=== PATIENT | female | born 1975 | race Caucasian/White ===

== ENCOUNTER 2019-09-04 20:42 | Inpatient (IN) | payer SELFPAY ==
[2019-09-04] MEDS ORDERED: ZOLPIDEM 5 MG TAB PO PRN (21:17)
[2019-09-04] MEDS ORDERED: ACETAMINOPHEN 325 MG TAB PO PRN (21:17)
[2019-09-04 22:24] LABS: Hematocrit 34.2 % (30.3-42.9); Hemoglobin 11.6 gm/dl (10.1-14.3); Mean Corpuscular HGB Conc 34 % (30-34); Mean Corpuscular Volume 84 fl (79-97); Platelet Count 263 K/mm3 (140-440); Red Blood Count 4.05 M/mm3 (3.65-5.03); Red Cell Distribution Width 17.3 % (13.2-15.2)
[2019-09-04] MEDS ORDERED: miSOPROStol 200 MCG TAB VG SCH (23:00)
[2019-09-04 23:56] VITALS: BP 118/58
[2019-09-05] MEDS ORDERED: OXYTOCIN 20 UNIT/1000ML DRIP 20,000 MILLIUNITS/1,000 ML BAG IV ONE (05:54)
[2019-09-05] MEDS ORDERED: SODIUM CHLORIDE 0.9% 1000 ML 0 ML ONE (08:44)
--- NOTE | 2019-09-05 11:09 | Ultrasound Report ---
Pelvic ultrasound. 09/05/2019. HISTORY: . Possible loss. FINDINGS: Imaging was performed transabdominally. The uterus measures 15.7 x 8 x 8.4 cm. Endometrial stripe measures 1.6 cm and is mildly heterogeneous. There is no significant increased vascularity or localized soft tissue lesion. The ovaries were not visualized. IMPRESSION: Thickened heterogeneous endometrial stripe. No increased blood flow or discrete soft tiss ue lesion which is highly suggestive of retained products. Signer Name: Kulwant Mederos MD Signed: 09/05/2019 11:05 AM Workstation Name: [id number]
--- NOTE | 2019-09-05 11:45 | History and Physical Report ---
History of Present Illness Date of examination: 09/05/19 ( I saw pt around 1015) Date of admission: 09/04/19 20:42 History of present illness: Patient is a 44-year-old G5 P 3013 at 16.2 weeks is status post delivery of a intrauterine demise early this morning around 6 to 6:30 in the morning. Per report from the nursing staff from overnight the fetus and placenta did deliver intact. I was then contacted around 845 after patient in the 8:00 hour passed some additional clotting tissue. After that though her bleeding was reported to be minimal. Upon my interview with the patient and her bleeding was still minimal. Her cramping was improved. The ultrasound ordered for potential retained products of conception was being done when I was in the room on 10:15. Per the termite technician, there was no evidence of any significant products of conception that was retained. Patient was brought in yesterday evening after it was noted in the office that there was no heart tones. Cytotec was then given to induce labor. Patient is currently stable in no physical complaints. Of note patient has had a demise around 16 weeks in the past. Past History Past Medical History: other (depression) Past Surgical History: no surgical history - Obstetrical History Expected Date of Delivery: 02/18/20 Actual Gestation: 16 Week(s) 2 Day(s) : 5 Para: 3 Hx # Term Pregnancies: 3 Spontaneous Abortions: 2 (16 weeks IUFD for both) Number of Living Children: 3 Medications and Allergies Allergies Allergy/AdvReac Type Severity Reaction Status Date / Time No Known Allergies Allergy Verified 04/02/16 21:28 Home Medications Medication Instructions Recorded Confirmed Last Taken Type Ibuprofen [Motrin 800 MG tab] 800 mg PO Q8HR PRN #30 tablet 09/05/19 Unknown Rx Active Meds: Active Medications Acetaminophen (Tylenol) 650 mg PO Q6H PRN PRN Reason: Pain MILD(1-3)/Fever >100.5/HANKINS Misoprostol (Cytotec) 200 mcg VG Q6H GLADIS Last Admin: 09/04/19 23:03 Dose: 200 mcg Documented by: Zolpidem Tartrate (Ambien) 5 mg PO QHS PRN PRN Reason: Sleep Review of Systems All systems: negative (except HPI) - Vital Signs Vital signs: Vital Signs Pulse BP 71 132/60 09/04/19 22:25 09/04/19 22:25 Temp Pulse Resp BP Pulse Ox 98.6 F 79 118/58 09/04/19 22:26 09/04/19 23:55 09/04/19 23:55 - Physical Exam Abdomen: Positive: normal appearance, soft. Negative: tenderness Genitourinary (Female): Positive: normal external genitalia Vulva: both: normal Vagina: Positive: normal moisture (cervix < 1 cm dilated, no significant blood in vagina, no protruding tissue or clots palpable. Uterus palpated firm on bimanual exam) Results Result Diagrams: 09/04/19 22:05 Abnormal lab results 09/04/19 Range/Units 22:05 RDW 17.3 H (13.2-15.2) % All other labs normal. Assessment and Plan - Patient Problems (1) IUFD at less than 20 weeks of gestation Current Visit: Yes Status: Acute Plan to address problem: Pt is stable. Will wait until 4 hrs after passage of her last clots (which will be around 12 pm). If still no signficant VB, will send home (which is what pt opted to do). All questions answered. VB precautions d/w pt. RTO 6 weeks
--- NOTE | 2019-09-05 12:02 | Discharge Summary ---
Providers - Providers Date of Admission: 09/04/19 20:42 Date of discharge: 09/05/19 Attending physician: RUTH MUNIZ MD Primary care physician: RUTH MUNIZ MD Hospitalization Procedure: other (IUFD delivered vaginally at 16.2 weeks) Episiotomy: none Laceration: none complications: none Hospital course: Pt was given Cytotec for IOL for an IUFD and delivered at 16.2 weeks Condition at discharge: Stable Disposition: DC-01 TO HOME OR SELFCARE - Discharge Diagnoses (1) IUFD at less than 20 weeks of gestation Status: Acute Plan - Discharge Medications Prescriptions: Ibuprofen [Motrin 800 MG tab] 800 mg PO Q8HR PRN #30 tablet PRN Reason: Pain , Severe (7-10) - Provider Discharge Summary Additional instructions: [] Smoking cessation referral if applicable(refer to patient education folder for contact #) [] Refer to [facility]'s [facility] Booklet Call your doctor immediately for: * Fever > 100.5 * Heavy vaginal bleeding ( >1 pad per hour) * Severe persistent headache * Shortness of breath * Reddened, hot, painful area to leg or breast * Drainage or odor from incision. * Keep incision clean and dry at all times and follow doctor's instructions regarding bathing/showering - Follow up plan Follow up: RUTH MUNIZ MD [Primary Care Provider] - 6 Weeks
[2019-09-05] MEDS ORDERED: miSOPROStol 200 MCG TAB VG SCH (22:00)
== END 2019-09-05 15:23 | disposition home or self-care (01) | DRG 779 ==
LOC: LD 20:42
PROVIDERS: ADMIT Obstetrics & Gynecology; ATTEND Obstetrics & Gynecology
DX: O02.1 Missed abortion (principal)
CPT/HCPCS: 36415; 76857; 85027; 86850; 86900; 86901; 88309; G0378; J2590; J7030